=== PATIENT | male | born 1980 | race African-American/Black ===

== ENCOUNTER 2020-12-02 09:36 | Emergency (ER) | payer MEDICAID ==
[~2020-12-02] VITALS: Ht 180.3 cm; Wt 79.0 kg
[2020-12-02 10:03] VITALS: BP 105/62
[2020-12-02] MEDS ORDERED: METOCLOPRAMIDE HCL 10MG/2ML VIAL IV STA (10:17)
[2020-12-02] MEDS ORDERED: SODIUM CHLORIDE 0.9% 1,000 ML IV ONE (10:30)
[2020-12-02] MEDS ORDERED: PANTOPRAZOLE 80 MG in SODIUM CHLORIDE 0.9% 80 ML IV ONE (10:30)
[2020-12-02] MEDS ORDERED: PANTOPRAZOLE 40MG DR TABLET PO ONE (10:45)
[2020-12-02] MEDS ORDERED: MAGNESIUM/ALUMINUM HYDROXIDE/SIMETHICONE 30ML UDC PO ONE (10:45)
[2020-12-02] MEDS ORDERED: PROT20 MT (11:03)
== END 2020-12-02 11:21 | disposition home or self-care (01) ==
LOC: ER 09:36
DX: R10.13 Epigastric pain (principal); E11.9 Type 2 diabetes mellitus without complications; G47.419 Narcolepsy without cataplexy
CPT/HCPCS: 93005; 99283; C9113; J7030; J7050